=== PATIENT | female | born 1980 | race Caucasian/White ===

== ENCOUNTER → 2019-08-29 14:44 | Outpatient (CLI) | payer OTHER, SELFPAY ==
--- NOTE | ~2019-08-29 | US_ITS ---
Corrected Report See Bolded Text Order # Associated 08/30/2019 [facility] EXAMINATION: US pelvic complete DATE: 08/29/2019 14:59 INDICATION: Right lower quadrant pain Comparison:06/15/2019 TECHNIQUE: Multiple transabdominal sonographic images of the pelvis performed. FINDINGS: The uterus measures 8.7 x 3.8 x 4.1 cm. The endometrial complex measures 5 mm. The right ovary measures 4.2 x 2.2 x 2.5 cm and the left ovary measures 3.1 x 2 x 2.7 cm. There are small follicles in each ovary. There is no free fluid in the pelvis. There are no abnormal masses seen on either side. IMPRESSION: 1. Normal pelvic ultrasound. Reviewed, dictated and finalized at location B. [employer]
== END ==
PROVIDERS: PCP Internal Medicine; Visit Provider Obstetrics & Gynecology
DX: R10.31 Right lower quadrant pain (principal)
CPT/HCPCS: 76830; 76856

== ENCOUNTER 2023-02-15 14:10 | Outpatient (CLI) | payer OTHER, SELFPAY ==
--- NOTE | ~2023-02-15 | MM_ITS ---
EXAMINATION: MM screening remigio BI w [facility] HISTORY: Screening mammogram TECHNIQUE: Craniocaudal and mediolateral oblique 3-D tomosynthesis images were obtained and synthetic 2-D images were generated. CAD analysis was submitted and interpreted. COMPARISON: No prior mammogram is available for comparison at this institution. BREAST PARENCHYMAL COMPOSITION: There are scattered areas of fibroglandular density. FINDINGS: There are bilateral mammographic asymmetries. There is a history of bilateral breast reduct ion surgery. Comparison with prior mammograms, reportedly in [place], would be recommended to asse ss for stability or any significant interval change. Occasional benign punctate microcalcifications. No skin thickening or retraction. IMPRESSION: 1. Bilateral mammographic asymmetries, possibly secondary to prior bilateral breast reduction surgery 2. Comparison with prior mammograms is essential BI-RADS Category 0: Incomplete: Needs additional imaging evaluation: Comparison with prior mammogram examinations Reviewed, dictated and finalized at location A. IMPRESSION: 1. Bilateral mammographic asymmetries, possibly secondary to prior bilateral br east reduction surgery 2. Comparison with prior mammograms is essential BI-RADS Category 0: Incomplete: Needs additional imaging evaluation: Comparison with prior mammogram examinations
== END 2023-02-15 14:11 | disposition home or self-care (01) ==
PROVIDERS: PCP Internal Medicine; Visit Provider Obstetrics & Gynecology
DX: Z12.31 Encounter for screening mammogram for malignant neoplasm of breast (principal); R92.8 Other abnormal and inconclusive findings on diagnostic imaging of breast
CPT/HCPCS: 77063; 77067

== ENCOUNTER 2023-03-28 12:34 | Outpatient (CLI) | payer OTHER, SELFPAY ==
--- NOTE | ~2023-03-28 | MM_ITS ---
EXAMINATION: MM diagnostic remigio RT w [facility] HISTORY: Right breast asymmetries on screening mammogram TECHNIQUE: Additional 3-D tomosynthesis images of the right breast were performed and synthetic 2-D i mages were generated. CAD analysis was submitted and interpreted. COMPARISON: 02/15/2023 BREAST PARENCHYMAL COMPOSITION: There are scattered areas of fibroglandular density. FINDINGS: No persistent asymmetry is identified with spot compression of the right breast. No suspici ous mass, calcification, or architectural distortion are identified. IMPRESSION: 1. No mammographic evidence of malignancy. 2. Recommend routine screening mammography in one year. BI-RADS Category 1: Negative Reviewed, dictated and finalized at location A.
== END 2023-03-28 12:35 | disposition home or self-care (01) ==
PROVIDERS: PCP Internal Medicine; Visit Provider Physician Assistant Surgical
DX: R92.8 Other abnormal and inconclusive findings on diagnostic imaging of breast (principal)
CPT/HCPCS: 77061; 77065; G0279